=== PATIENT | female | born 1955 | race Caucasian/White ===

== ENCOUNTER 2017-02-09 10:00 | Inpatient (IN) | payer OTHER ==
[~2017-02-09] VITALS: Ht 170.2 cm; Wt 123.6 kg
--- NOTE | ~2017-02-09 | OR ---
PATIENT'S NAME: JUANI RAPHAEL [facility] AGE: 61 Y [address] ROOM: [address] [place], [place] [address] LOCATION: [facility] ADMIT DATE: 02/19/2017 OR/Procedure Report DISCHARGE DATE: FAMILY PHYSICIAN: Ulises Garza MD ATTENDING PHYSICIAN: CECILIA SCHWARTZ SURGEON: Cecilia Schwartz MD FINAL ARMATURE TESTER: 1. DOROTA Jain. 2. Mundo Benítez CST/JACKET PREPARER. DATE OF PROCEDURE: 02/19/2017 PRE-OP DIAGNOSIS: 1. Degenerative joint disease right knee. 2. Obesity (5 feet 7 inches tall and 280 pounds). POST-OP DIAGNOSIS: 1. Degenerative joint disease right knee. 2. Obesity (5 feet 7 inches tall and 280 pounds). OPERATION: Right total knee arthroplasty with computer navigation. ANESTHESIA: Spinal anesthesia plus adductor canal block plus periarticular local anesthesia (ropivacaine with epinephrine and Toradol). ESTIMATED BLOOD LOSS: Less than 20 mL. DRAIN: None. SPECIMEN: None. COMPLICATIONS: None. IMPLANT SYSTEM: [place] Tri[employer]lon Size 5 right posterior stabilized femoral component Size 4 universal modular tibial baseplate. 13 mm posterior stabilized size 4, X3 tibial polyethylene insert 32 mm oval X3 patellar component. INDICATIONS FOR SURGERY: Juani is a 61-year-old female who presents with advanced right knee degenerative joint disease and associated severely compromised activities of daily living. The patient has decided to proceed with knee replacement after having been thoroughly counseled regarding the associated risks, benefits, and limitations. We have specifically reviewed the risks and implications of infection, deep venous thrombosis, pulmonary embolism, mortality, neurovascular complications, blood transfusion (and associated potential for disease transmission or transfusion reaction), PATIENT'S NAME: JUANI RAPHAEL [facility] AGE: 61 Y [address] ROOM: [facility] [place], [place] [address] LOCATION: [facility] ADMIT DATE: 02/19/2017 OR/Procedure Report DISCHARGE DATE: FAMILY PHYSICIAN: Ulises Garza MD ATTENDING PHYSICIAN: CECILIA SCHWARTZ stiffness, instability, mechanical deterioration of the components (due to wear and or loosening), and the potential need for revision. We have also emphasized the importance of active involvement and compliance with post- operative physical therapy as a means of optimizing range of motion and functional recovery. Informed consent has been granted. DESCRIPTION OF PROCEDURE: The patient was positioned supine after administration of anesthesia and prophylactic antibiotics. A well-padded pneumatic tourniquet was placed around the right proximal thigh, and the right lower extremity was prepped and draped with vigilant sterile technique. The patient's name as well as the intended operative side and procedure were confirmed with a verbal time-out involving myself, the circulating nurse, the scrub nurse, and the anesthesiologist. Examination under anesthesia demonstrated no active skin lesions or masses. There was no erythema. There was no abnormal warmth. There was a large soft tissue envelope surrounding the distal thigh, knee, and calf. There was a moderate effusion. Range of motion was under anesthesia was from a 6 degree flexion contracture to 120 degrees of flexion. There was no ligamentous insufficiency. The right lower extremity was elevated and exsanguinated with an Esm[employer] wrap, and the pneumatic tourniquet was inflated to 300mmHg. The knee was approached through a longitudinal midline incision. A medial parapatellar arthrotomy was performed and the patella was everted. Examination of the joint space demonstrated a large amount of benign-appearing translucent synovial fluid. There was a 1 x 1.5 x 1 cm osseous mass at the posteromedial aspect of the intercondylar notch. This was adherent to the posterior horn of the medial meniscus. There were large osteophytes at the intercondylar notch. The cruciate ligaments were intact. There was a large popliteal cyst, which I decompressed into the posteromedial aspect of the joint by dilating its point of communication. There was full-thickness loss of articular cartilage involving 80% of the medial tibial plateau and 80% of the medial femoral condyle. There was a moderate-sized osteophyte at the medial femoral condyle. There was a large osteophyte at the medial tibial plateau. There was a small osteophyte at the lateral femoral condyle. There were large osteophytes at the superior and lateral margins of the femoral trochlea. There were small osteophytes at the superior and inferior margins of the patella. There was high-grade partial-thickness articular cartilage loss extending across the equator of the patella and involving the central 3 cm of the femoral trochlea. There were moderate grade 3 degenerative changes at the medial half of the lateral tibial plateau. There were mild grade 3 degenerative changes at the posteromedial aspect of the lateral femoral condyle. There was moderate inner perimeter tearing of the medial meniscus. The lateral meniscus was intact. PATIENT'S NAME: JUANI RAPHAEL [facility] AGE: 61 Y [address] ROOM: [address] [address] LOCATION: [facility] ADMIT DATE: 02/19/2017 OR/Procedure Report DISCHARGE DATE: FAMILY PHYSICIAN: Ulises Garza MD ATTENDING PHYSICIAN: CECILIA SCHWARTZ Remnants of the menisci and cruciate ligaments were excised. The [employer] computer navigation femoral tracker was pinned in place at the distal aspect of the femoral trochlea. Absence of motion between the femur and the tracking device was confirmed manually and visually. Femoral osseous landmarks were obtained in order to calibrate the computer navigation system. Landmarks included the center of rotation of the ipsilateral hip, the center-point of the distal femur, the femoral AP axis, 57 points on the medial femoral condyle articular surface, and 57 points on the lateral femoral condyle articular surface. The [employer] computer navigation system was subsequently utilized to position the distal femoral resection block such that the distal femoral resection was performed perfectly perpendicular to the femoral mechanical axis. The distal femoral resection was performed with a [employer] oscillating saw. The [employer] computer navigation tibial tracker was pinned in place at the anterior aspect of the tibial plateau. Absence of motion between the tibia and the tracking device was confirmed manually and visually. Tibial osseous landmarks were obtained in order to calibrate the computer navigation system. Landmarks included the center-point of the tibial plateau, the AP tibial axis, 57 points on the medial tibial plateau articular surface, 57 points on the lateral tibial plateau articular surface, the medial malleolus, and the lateral malleolus. The [employer] computer navigation system was subsequently utilized to position the proximal tibial resection block such that the proximal tibial resection was performed perfectly perpendicular to the tibial mechanical axis. The proximal tibial resection was performed with a [email or web address] oscillating saw. Perpendicularity of the tibial resection with respect to the tibial shaft axis was reconfirmed by inserting a spacer- block attached to an extramedullary guide chaz. External rotation of the anterior and posterior femoral resections was set parallel to the epicondylar axis and carefully adjusted in order to create a rectangular flexion gap. The box resection was performed with a reciprocating saw. Anterior and posterior chamfer resections were performed with the oscillating saw. Posterior condyle osteophytes were excised with an osteotome. All other osteophytes were excised with a rongeur. Resection of all remnants of the menisci was reconfirmed. Flexion and extension gaps were confirmed to be symmetric and well balanced with a spacer-block technique. The patella resection was performed with an oscillating saw such that the composite thickness of the reconstructed patella was equivalent to the thickness of the [place] patella. Patella tracking was confirmed to be optimal. A lateral retinacular release was performed in order to optimize patella tracking. PATIENT'S NAME: JUANI RAPHAEL [facility] AGE: 61 Y [address] ROOM: [address] [address] LOCATION: [facility] ADMIT DATE: 02/19/2017 OR/Procedure Report DISCHARGE DATE: FAMILY PHYSICIAN: Ulises Garza MD ATTENDING PHYSICIAN: CECILIA SCHWARTZ All trial components were removed and all prepared osseous surfaces were thoroughly irrigated with pulsatile saline lavage and dried prior to cementing all three components in a single stage using [place] Simplex cement containing pre-mixed tobramycin. All extruded excess cement was removed. The entire joint space was thoroughly inspected and thoroughly irrigated with bacteriostatic pulsatile saline lavage to assure that there was no residual debris of any sort. Final range of motion was from a full extension (with no passive hyper- extension) to 130 degrees of flexion. Patella tracking was reconfirmed to be optimal. There was excellent anteroposterior stability at 90 degrees of flexion. There was less than 1 mm of medial lift-off to valgus stress in full extension. There was less than 1 mm of lateral lift-off to varus stress in full extension. The arthrotomy was closed with multiple simple and [id number] interrupted #1 Vicryl. Subcutaneous tissues were thoroughly re-irrigated with bacteriostatic pulsatile saline lavage. Subcutaneous tissues were re- approximated with simple buried interrupted #0 Vicryl sutures. The skin was closed with simple buried interrupted 2-0 Vicryl sutures followed by surgical kevin. The dressing consisted of Xeroform gauze, 4x4 gauze, ABD pads and two 6-inch Jesús Wraps. There were no intra-operative complications. It should be noted that the physician's legal administrative assistant played an active, integral role throughout this entire operation. By providing expert retraction, they greatly facilitated and expedited safe and effective exposure of the distal femur, proximal tibia and patella for preparation and implantation of the components. They were also actively involved in the patient's positioning, prepping and draping, as well as wound closure. MD TORRES WALSH/augie /[id number] d: 02/19/172020 t: 03/01/172221, OPERATIVE SUMMARY
--- NOTE | ~2017-02-09 | DS ---
PATIENT'S NAME: YVES RAPHAEL [facility] AGE: 61 Y [address] ROOM: [place] [address] LOCATION: [facility] ADMIT DATE: 02/19/2017 Discharge Summary DISCHARGE DATE: 02/21/2017 FAMILY PHYSICIAN: Ulises Garza MD ATTENDING PHYSICIAN: Cecilia Schwartz PRIMARY DIAGNOSIS: Degenerative joint disease of the right knee. SECONDARY DIAGNOSES: Include: 1. Obesity. 2. Hypertension. 3. History of gastritis. 4. Diabetes mellitus. 5. hypercholesterolemia. 6. Gastroesophageal reflux disease. PROCEDURE PERFORMED: Right total knee arthroplasty with computer navigation. HISTORY: The patient is a 61-year-old female, who presents with advanced right knee degenerative joint disease and associated severely compromised activities of daily living. The patient has decided to proceed with total knee arthroplasty after having been thoroughly counseled regarding the risks, benefits, limitations and alternatives. Please refer to the outpatient clinic notes and admission history and physical for this patient. HOSPITAL COURSE: The patient underwent a right total knee arthroplasty on 02/19/2017 without complications. Spinal anesthesia plus adductor canal block plus periarticular local anesthesia was utilized. The patient received 24 hours of perioperative prophylactic antibiotics and remained hemodynamically stable, neurovascularly intact throughout the entire hospital course. The postoperative prophylactic deep venous thrombosis prophylaxis consisted of Xarelto 10 mg early mobilization and pneumatic compression devices. Daily physical therapy for gait training, transfer training range of motion and quadriceps isometric exercises were received. The patient progressed well in physical therapy. On the date of discharge, on 02/19/2017, the incision at the knee was healing well and showed no signs of infection. DISPOSITION: Home. DISCHARGE ACTIVITY: The patient is to bear weight as tolerated with range of motion and quadriceps isometric exercises as instructed. The operative extremity is to be elevated at least 90% of the day. There is to be sterile 4x4 gauze dressings to the incision daily. Dr. Schwartz is to be notified immediately if there is any increased pain, fevers, chills erythema or drainage. PATIENT'S NAME: YVES RAPHAEL [facility] AGE: 61 Y [address] ROOM: [address] [address] LOCATION: [facility] ADMIT DATE: 02/19/2017 Discharge Summary DISCHARGE DATE: 02/21/2017 FAMILY PHYSICIAN: Ulises Garza MD ATTENDING PHYSICIAN: Cecilia Schwartz DISCHARGE MEDICATIONS: Include: 1. Xarelto 10 mg take one tablet p.o. daily for DVT prevention. 2. Valium 5 mg take one-half tablet to one tablet every 6 hours as needed for muscle spasm. 3. Dilaudid 8 mg take 1 to 2 tablet p.o. every 4 hours as needed for pain. FOLLOWUP: Followup date is scheduled for 1 week subsequent to dismissal from the hospital for initial postoperative evaluation and x-rays at that time. DOROTA TEJADA FOR CECILIA SCHWARTZ MD TLB/modl /[id number] d: 02/28/17 1237 t: 03/02/17 1040, DISCHARGE SUMMARY
[~2017-02-09 10:00] MED LIST: BIOFREEZE89 ML TOP; CELEBREX200 MG PO; COLACE100 MG PO; DILAUDID 2MG(HYD2 MG PO; GLUCOPHAGE500 MG PO; LEXAPRO10 MG PO; MIRALAX17 GM PO; NEURONTIN300 MG PO; OMEPRAZOLE40 MG PO; TENORMIN25 MG PO; TYLENOL EXTRA500 MG PO; ULTRAM50 MG PO; VALIUM5 MG PO; XARELTO10 MG PO
--- NOTE | 2017-02-19 15:36 | NUR ---
Introduced self/role to patient and . Reviewed and encouraged use of the IS. Verbalizes understanding from prior OR. Encouraged waving of her feet. Has foot pumps on bilat. Plans to return home with help from . Has DME needed. Will follow and assist as needs identified.
--- NOTE | 2017-02-19 17:56 | NUR ---
Significant Event: Pt up from PACU at 1315. Aox3. Slightly hypertensive with rates in the 150s. said to continue to monitor. PRN Hydralazine orders have been written. CSM WNL, slighlty dull feeling yet. Able to plantar/dorsi flex. Ice to knee. Rupesh hose and foot pumps on. Encourage IS. She had to go home with oxygen last time. High risk ARLETH.. Type II DM, 310 was last BS. 6 units of Novolog given per SS. No void since OR. Tried at 1600 when she got up, no luck. Up with 1PA, walker and gait belt. 2nd hourly vital sign due at 1830, next neuro 1900. Pain controlled with Dilaudid 2 mg and Valium. Follow up:
--- NOTE | 2017-02-20 04:12 | NUR ---
Patient alert and oriented x3, very pleasant and cooperative, transfers well one assist with walker and gaitbelt to commode, dressing to knee clean dry and intact, csm with in normal limits, pain has been under control tonight and patient has rested well
--- NOTE | 2017-02-20 11:50 | NUR ---
Introduced self/role to patient and her Adebayo, they live in [place]. She has her other knee done not long ago so has all the DME from that surgery. Denied any other discharge needs. Added my name to her marker board. Planning to go home tomorrow.
--- NOTE | 2017-02-20 16:20 | NUR ---
Significant Event: pt alert and oriented. up in the recliner this shift. pain issues this afternoon. iv diluadid goven at 1609. diluadid po given at 1526. tylenol given at 1700. ice to knee. home possibly tomorrow. in the room with pt. accuchecks ac and hs. Follow up:
[2017-02-21] MEDS ORDERED: COLACE100 MG PO ×2 (04:15→13:11)
--- NOTE | 2017-02-21 04:15 | NUR ---
Significant Event: Dressing is clean, dry and intact. CSM WNL. Voids without difficulty. 1 assist with transfers. Accu check. Dilaudid last at 0044. Ultram x1 at 2257. Dilaudid IV at 2148. Midline to L) arm. Follow up:
[2017-02-21] MEDS ORDERED: MIRALAX17 GM PO ×2 (04:16→13:15)
[2017-02-21] MEDS ORDERED: XARELTO10 MG PO ×2 (04:17→13:22)
[2017-02-21] MEDS ORDERED: NEURONTIN300 MG PO (13:11)
[2017-02-21] MEDS ORDERED: VALIUM5 MG PO (13:24)
[2017-02-21] MEDS ORDERED: DILAUDID 2MG(HYD2 MG PO (13:25)
--- NOTE | 2017-02-21 14:40 | NUR ---
pt and her given discharge insrutions and voices understanding. medications and dressing changes reviewed. pain meds given to pt prior to discharge. escorted to the front door by transport staff. at pt's side.
== END 2017-02-21 15:13 | disposition disaster alternative care site (69) | DRG 470 ==
LOC: G3N 02-19 06:54
PROVIDERS: ADMIT Orthopaedic Surgery
PROC: 0SRC0J9 Replacement of Right Knee Joint with Synthetic Substitute, Cemented, Open Approach (ICD-10-PCS; principal; 2017-02-19)
DX: M17.11 Unilateral primary osteoarthritis, right knee (principal); Z68.41 Body mass index [BMI] 40.0-44.9, adult; I10 Essential (primary) hypertension; E66.9 Obesity, unspecified; E11.9 Type 2 diabetes mellitus without complications; E66.01 Morbid (severe) obesity due to excess calories; F41.9 Anxiety disorder, unspecified; K21.9 Gastro-esophageal reflux disease without esophagitis
CPT/HCPCS: A9270; C1713; C1751; C1776; J0690; J1100; J1170; J1885; J2250; J2795; J7030; J7120